=== PATIENT | female | born 1995 ===

== ENCOUNTER 2016-12-21 04:44 | Inpatient (IN) | payer BC, MEDICAID ==
[2016-12-21] MEDS ORDERED: OXYTOCIN IN LR 500 ML IV ONE (05:32)
[2016-12-21 05:37] VITALS: BMI 30.9
[2016-12-21] MEDS ORDERED: PUMP TUBING ONE (05:39)
[2016-12-21] MEDS ORDERED: OXYTOCIN 10 UNITS/ML VIAL ONE ×4 (05:39→17:16)
[2016-12-21] MEDS ORDERED: LIDOCAINE Viscous 2% 15 ML UDCUP ONE (05:39)
[2016-12-21] MEDS ORDERED: MINERAL OIL 25 ML BOT ONE (05:39)
[2016-12-21] MEDS ORDERED: LIDOCAINE 1% (PRES FREE) 30 ML VIAL ONE (05:39)
[2016-12-21] MEDS ORDERED: IV START KIT ONE (05:39)
[2016-12-21 06:34] LABS: HEMATOCRIT 36.9 % (37.0-47.0); HEMOGLOBIN 12.2 gm/l (12.0-16.0); MEAN CELL VOLUME 89.1 fl (81.0-99.0); MEAN CORPUSCULAR HEMOGLOBIN 29.5 pg (27.0-31.0); MEAN CORPUSCULAR HGB CONC 33.1 g/dl (33.0-37.0); RED CELL DISTRIBUTION WIDTH 14.1 % (11.5-14.5)
--- NOTE | 2016-12-21 07:57 | PDOC36 ---
Provider Note Note: cc: Admission H&P HPI: 21 y.o. year old BARRY 12/23/2016, by Ultrasound at 39w5d who SROMd at 0350 this morning. REVIEW OF SYSTEMS GENERAL:~ No fever or headache EYES:~ No double or blurry vision. CARDIOVASCULAR:~ No chest pain. RESPIRATORY:~ No severe shortness of breath or cough. GASTROINTESTINAL:~ No nausea or vomiting or right upper quadrant pain.~ PSYCHIATRIC:~ No anxiety or depression. PROBLEMS Normal OB HISTORY #: 1, Date: 04/17/15, Sex: None, Weight: None, GA: 8w0d, Delivery: Spontaneous , Apgar1: None, Apgar5: None, Living: [place], Comments: None #: 2, Date: Current PSH No past surgical history on file. SOC HX Reports that she has never smoked. She does not have any smokeless tobacco history on file. She reports that she does not drink alcohol or use illicit drugs. ALL No Known Allergies MEDICATIONS ~ Vit-Fe Fumarate-FA ( PO), Take by mouth., Disp: , Rfl:~ PHYSICAL EXAMINATION VITAL SIGNS:~ AFVSS Estimated body mass index is 30.44 Weight as of 12/17/16: (163 lb 4.8 oz). Total weight gain is 8.754 kg (19 lb 4.8 oz) FHT:~ 140s moderate variability positive accels with variable decels, category II [place]:~ contractions every 2-5 min SVE:~ 3/80/-2 GENERAL:~ No distress CARDIOVASCULAR:~ Regular rate and rhythm, no murmur, JVD or pedal edema. RESPIRATORY:~ Clear to auscultation bilaterally, respiratory effort is nonlabored at rest. GASTROINTESTINAL:~ Gravid no fundal tenderness NEUROLOGIC:~ Deep tendon reflexes are 2+ in the knees.~ Cranial nerves II-XII are grossly intact. PSYCHIATRIC:~ Alert and oriented x3, judgement and memory is intact, mood is pleasant. LABS & STUDIES O+ Antibody- Rubella Immune Hep B- HIV- GC/Chlamydia- Trep- Hgb 12.2 GBS Negative ULTRASOUNDS 11 wk - dating US at DI. 19 wk - anatomy survey normal. Grade I anterior placenta without previa. LOUISE subj nl. Female. ASSESSMENT 21 y.o. year old BARRY 12/23/2016, by Ultrasound at 39w5d with SROM at 03: 50 today who is in labor. PLAN Admit for expectant management. :~ Yes Control: Condoms Pediatrics:~ Miguel A Morales MD MPH
[2016-12-21] MEDS: LACTATED RINGERS 1,000 ML IV SCH ×3 (11:03→14:46)
--- NOTE | 2016-12-21 11:28 | PDOC36 ---
Provider Note Note: SUBJECTIVE: Pt was in tub and had a 3 minute decal into the 90s OBJECTIVE: VS: AFVSS FHT: Now in the 160s marked variability, no decels, category II [place]: Contractions every 2-3 minutes SVE: /-2 ASSESSMENT: 21 y.o. year old BARRY 12/23/2016, by Ultrasound at 39w5d with SROM at 03: 50 today who is in labor. PLAN: Decel improved with position changes, fluid bolus and O2. Will continue to monitor closely for further decels with continuous monitoring.
[2016-12-21] MEDS ORDERED: FENTANYL 100 MCG/2 ML VIAL IV PRN (13:02)
[2016-12-21] MEDS ORDERED: ONDANSETRON 4 MG/2ML 2 ML VIAL IV PRN ×4 (13:09→18:25)
[2016-12-21] MEDS ORDERED: EPIDURAL PUMP SET ONE (13:24)
[2016-12-21] MEDS ORDERED: FENTANYL/ROPIVACAINE EPIDURAL 250 ML EP ONE (13:25)
[2016-12-21] MEDS ORDERED: EPIDURAL PROCEDURE TRAY ONE (13:42)
[2016-12-21] MEDS ORDERED: BUPIVACAINE 0.25% (PRES FREE) 30 ML VIAL ONE (13:42)
[2016-12-21] MEDS ORDERED: EPHEDRINE SULFATE 50 MG/ML 1ML VIAL IV PRN (13:45)
[2016-12-21] MEDS ORDERED: LACTATED RINGERS 1,000 ML IV SCH ×3 (13:45→18:00)
[2016-12-21] MEDS ORDERED: NALBUPHINE HCL 20 MG/ML AMP IV PRN (13:45)
[2016-12-21] MEDS ORDERED: LACTATED RINGERS 500 ML IV PRN (13:45)
[2016-12-21] MEDS ORDERED: NALOXONE HCL 0.4 MG/ML VIAL IV PRN (13:45)
[2016-12-21] MEDS ORDERED: DIPHENHYDRAMINE HCL 50 MG/1 ML VIAL IV PRN ×3 (13:45→18:25)
[2016-12-21] MEDS ORDERED: SODIUM CHLORIDE 0.9% 500 ML IV PRN (13:45)
[2016-12-21] MEDS ORDERED: METOCLOPRAMIDE HCL 5 MG/ML 2ML VIAL IV PRN (13:45)
[2016-12-21] MEDS ORDERED: FENTANYL/ROPIVACAINE EPIDURAL 250 ML EP SCH (14:52)
[2016-12-21] MEDS ORDERED: CEFAZOLIN SODIUM 2 GRAM DUPLEX 2 G in Premix (D5W) 50 ml 1 EACH IV PRN (15:41)
[2016-12-21] MEDS ORDERED: CEFAZOLIN SODIUM 2 GRAM DUPLEX 50 ML IV ONE (15:52)
[2016-12-21] MEDS ORDERED: LIDOCAINE 2% (PRES FREE) 5 ML VIAL ONE (15:54)
--- NOTE | 2016-12-21 15:57 | PDOC36 ---
Provider Note Note: cc: Admission H&P HPI: 21 y.o. year old BARRY 12/23/2016, by Ultrasound at 39w5d who SROMd at 0350 this morning. Labored until 3 pm with a couple of long decels lasting 3 minutes each which responded to position changes, oxygen and fluid boluses. She became complete around 3 pm and began pushing with deep repetitive late decels. She is remote from delivery and the baby will not tolerate pushing. REVIEW OF SYSTEMS GENERAL:~ No fever or headache EYES:~ No double or blurry vision. CARDIOVASCULAR:~ No chest pain. RESPIRATORY:~ No severe shortness of breath or cough. GASTROINTESTINAL:~ No nausea or vomiting or right upper quadrant pain.~ PSYCHIATRIC:~ No anxiety or depression. PROBLEMS Normal OB HISTORY #: 1, Date: 04/17/15, Sex: None, Weight: None, GA: 8w0d, Delivery: Spontaneous , Apgar1: None, Apgar5: None, Living: Demise, Comments: None #: 2, Date: Current PSH No past surgical history on file. SOC HX Reports that she has never smoked. She does not have any smokeless tobacco history on file. She reports that she does not drink alcohol or use illicit drugs. ALL No Known Allergies MEDICATIONS ~ Vit-Fe Fumarate-FA ( PO), Take by mouth., Disp: , Rfl:~ PHYSICAL EXAMINATION VITAL SIGNS:~ AFVSS Estimated body mass index is 30.44 Weight as of 12/17/16: (163 lb 4.8 oz). Total weight gain is 8.754 kg (19 lb 4.8 oz) FHT:~ 140s moderate variability positive accels with deep late decels, category II [place]:~ contractions every 2-5 min SVE:~ complete GENERAL:~ No distress CARDIOVASCULAR:~ Regular rate and rhythm, no murmur, JVD or pedal edema. RESPIRATORY:~ Clear to auscultation bilaterally, respiratory effort is nonlabored at rest. GASTROINTESTINAL:~ Gravid no fundal tenderness NEUROLOGIC:~ Deep tendon reflexes are 2+ in the knees.~ Cranial nerves II-XII are grossly intact. PSYCHIATRIC:~ Alert and oriented x3, judgement and memory is intact, mood is pleasant. LABS & STUDIES O+ Antibody- Rubella Immune Hep B- HIV- GC/Chlamydia- Trep- Hgb 12.2 GBS Negative ULTRASOUNDS 11 wk - dating US at DI. 19 wk - anatomy survey normal. Grade I anterior placenta without previa. LOUISE subj nl. Female. ASSESSMENT 21 y.o. year old BARRY 12/23/2016, by Ultrasound at 39w5d who SROMd at 0350 this morning. Labored until 3 pm with a couple of long decels lasting 3 minutes each which responded to position changes, oxygen and fluid boluses. She became complete around 3 pm and began pushing with deep repetitive late decels. She is remote from delivery and the baby will not tolerate pushing. PLAN I reviewed the risks, benefits and alternatives of a section with the patient. She understands the risk of bleeding (she states that she would accept blood products if medically necessary and consent was obtained after counseling), infection (wound infection - possibly leading to wound dehiscence, or pelvic infection) and damage to surrounding organs/tissues (including, but not limited to, bladder, bowel, ureters, uterus, ovaries/tubes, blood vessels and nerves). She understands that any of the above could necessitate further treatment or surgeries. Patient understands and agrees, all questions were answered Will proceed with surgery. :~ Yes Control: Condoms Pediatrics:~ Miguel A Morales MD MPH
[2016-12-21] MEDS ORDERED: MORPHINE SULFATE (DURAMORPH) 1 MG/ML 10ML AMP ONE (16:53)
[2016-12-21] MEDS ORDERED: FENTANYL 100 MCG/2 ML VIAL ONE (16:57)
[2016-12-21] MEDS ORDERED: KETAMINE HCL UD SYRINGE 100 MG/2 ML IV ONE (17:00)
[2016-12-21] MEDS ORDERED: BUPIVACAINE 0.5% (PRES FREE) 30 ML VIAL ONE (17:54)
[2016-12-21] MEDS ORDERED: DIPHENHYDRAMINE HCL 25 MG CAPSULE PO PRN ×2 (17:56→18:25)
[2016-12-21] MEDS ORDERED: LANOLIN 50 APPLIC/7G TUBE TP PRN ×2 (17:56→18:25)
[2016-12-21] MEDS ORDERED: IBUPROFEN 800 MG TABLET PO PRN (17:56)
[2016-12-21] MEDS ORDERED: OXYCODONE HCL 5 MG TABLET PO PRN ×2 (17:56→18:25)
[2016-12-21] MEDS ORDERED: HYDROCODONE/ACETAMINOPHEN 5/325MG TABLET PO PRN (17:56)
[2016-12-21] MEDS ORDERED: KETOROLAC TROMETHAMINE 30 MG/ML 1 ML VIAL IV PRN (17:56)
--- NOTE | 2016-12-21 18:38 | PDOC37 ---
Note:: DATE OF PROCEDURE 12/21/16 PREOPERATIVE DIAGNOSES Term Labor NRFHTs Remote from Delivery POSTOPERATIVE DIAGNOSES Same PROCEDURE Primary Low Transverse Section SURGEON Mazin Morales MD PIGS FEET CLEANER Kim Luong MD ANESTHESIA Epidural COMPLICATIONS None ESTIMATED BLOOD LOSS 750 mL URINE OUTPUT 650 mL IV FLUIDS 1100 mL START TIME 16:15 IMPLANTS None SPECIMENS None BRIEF HISTORY 21 y.o. year old BARRY 12/23/2016, by Ultrasound at 39w5d who SROMd at 0350 this morning. Labored until 3 pm with a couple of long decels lasting 3 minutes each which responded to position changes, oxygen and fluid boluses. She became complete around 3 pm and began pushing with deep repetitive late decels. She is remote from delivery and the baby will not tolerate pushing. FINDINGS Normal ovaries, fallopian tubes and uterus OPERATIVE NOTE Verbal and written informed consent was obtained. The patient was taken to the operating room where spinal anesthesia was found to be adequate.~ She was then placed in the dorsal supine position with a leftward tilt and prepped and draped in a sterile fashion.~ Surgical timeout was performed confirming the patient's name, date of , surgical procedure to be performed and any concerns from team members.~ A Pfannenstiel skin incision was then made with the scalpel and carried through to the underlying layer of fascia.~ The fascia was incised in the midline and the incision extended laterally with the Garcia scissors.~ The superior aspect of the fascial incision was then grasped with Geoff clamps, elevated and the underlying rectus muscles dissected off bluntly and with Garcia scissors.~ Attention was then turned to the inferior aspect of this incision, which in similar fashion was grasped, tented up with Geoff clamps, and the rectus muscle dissected of bluntly with Garcia scissors.~ The rectus muscles were then bluntly in the midline, and the peritoneum identified, tented up, and entered sharply with Metzenbaum scissors. ~ The peritoneal incision was then extended superiorly and inferiorly with good visualization of the bladder.~ An Deion retractor was inserted.~ The visceroperitoneum was grasped with smooth pickups, entered with Metzenbaum scissors, and extended laterally. A bladder flap was created by gentle blunt dissection and placed behind the bladder blade. The lower uterine segment was then incised in a transverse fashion with the scalpel.~ The uterine incision was then bluntly extended revealing the amniotic sac which was ruptured with clear fluid.~ The 's head was grasped, flexed and elevated to level of the hysterotomy and the head was then delivered atraumatically.~ The mouth and nose were bulb suctioned and the cord clamped and cut.~ The infant was handed off to the waiting resuscitation team.~ Cord gases were not required. The placenta was then removed via cord traction and fundal massage; the uterus was not exteriorized, it was cleared of all clots and debris.~ The uterine incision was repaired with 0 Vicryl in a running, locked fashion.~ The second layer was imbricated with 0 Vicryl in a running fashion.~~~ Hemostasis was checked and areas of bleeding were repaired with the Bovie. The gutters were cleared of all clots.~ Hemostasis was carefully checked and found to be satisfactory.~ The Deion was removed The fascia was reapproximated with 0 Vicryl in a running fashion.~ Bleeding points were Bovie coagulated. The skin was closed subcutaneously using 4-0 monocryl with a subcuticular stitch.~ A sterile dressing was placed. The patient tolerated the procedure well.~ Sponge, lap and needle counts were correct times two. The patient was taken to the recovery room in stable condition.
[2016-12-21] MEDS: KETOROLAC TROMETHAMINE 30 MG/ML 1 ML VIAL IV PRN (18:41)
[2016-12-21] MEDS ORDERED: DOCUSATE SODIUM 100 MG CAPSULE PO SCH (21:00)
[2016-12-22] MEDS: KETOROLAC TROMETHAMINE 30 MG/ML 1 ML VIAL IV PRN ×2 (00:57→08:13)
[2016-12-22 06:54] LABS: HEMATOCRIT 32.1 % (37.0-47.0); HEMOGLOBIN 10.5 gm/l (12.0-16.0)
[2016-12-22] MEDS: DOCUSATE SODIUM 100 MG CAPSULE PO SCH ×3 (08:14→20:11)
[2016-12-22] MEDS: PRENATAL VIT/FE FUMARATE/FA 1 TABLET PO SCH (08:14)
[2016-12-22] MEDS ORDERED: PRENATAL VIT/FE FUMARATE/FA 1 TABLET PO SCH (09:00)
[2016-12-22] MEDS: IBUPROFEN 800 MG TABLET PO PRN ×2 (13:58→20:11)
[2016-12-22] MEDS: HYDROCODONE/ACETAMINOPHEN 5/325MG TABLET PO PRN ×2 (13:58→20:11)
--- NOTE | 2016-12-22 19:05 | PDOC44 ---
- Subjective Day: 1 (POD#1 s/p LTCS for NRFHT) Doing well. Has been OOB to chair, but only once bc had visitors all day. Still w mckeon. Pain controlled. Min VB. No nausea or vomiting. Reports Flatus, Reports Pain Tolerable, Reports , Reports Tolerating Regular Diet, Denies Nausea, Denies Vomiting - Objective Temp Pulse Resp BP Pulse Ox 98.1 F 71 20 121/80 97 12/22/16 13:59 12/22/16 13:59 12/22/16 13:59 12/22/16 13:59 12/22/16 13:59 Lab Results 12/22/16 06:05 Hgb 10.5 L Hct 32.1 L Current Medications Generic Name Dose Route Start Last Admin Trade Name Freq PRN Reason Stop Dose Admin Acetaminophen/Hydrocodone Bitart 1 - 2 tab 12/21/16 18:25 12/22/16 13:58 [place] 5/325 PO 1 tab Q4H PRN Administration Pain (Moderate) Diphenhydramine HCl 25 - 50 mg 12/21/16 18:25 Benadryl PO Q6H PRN Itching (Mild/Moderate) Diphenhydramine HCl 25 - 50 mg 12/21/16 18:25 Benadryl IV Q6H PRN Itching (Severe) Docusate Sodium 100 mg 12/21/16 21:00 12/22/16 11:28 Colace PO Not Given BID MIRELLA Emollient Ointment 1 applic 12/21/16 18:25 Val-J-Zurldp TP PRN PRN sore nipples Lactated Ringer's 1,000 mls @ 125 mls/hr 12/21/16 18:30 Lactated Ringers IV .Q8H MIRELLA Ibuprofen 800 mg 12/21/16 18:25 12/22/16 13:58 Motrin PO 800 mg Q6H PRN Administration Pain Ketorolac Tromethamine 30 mg 12/21/16 18:25 12/22/16 08:13 Toradol IV 30 mg Q6H PRN Administration Pain (Mild/Moderate) Multivi/Iron Carb/Fe Sulf/FA/Prenat 1 tab 12/22/16 09:00 12/22/16 08:14 Plus PO 1 tab DAILY MIRELLA Administration Ondansetron HCl 4 mg 12/21/16 18:25 Zofran IV Q6H PRN Nausea/Vomiting Oxycodone HCl 5 - 10 mg 12/21/16 18:25 Roxicodone PO Q3H PRN Pain (Severe) Sodium Chloride 10 ml 12/21/16 18:25 12/22/16 17:46 Normal Saline 10ml Flush IV 10 ml PRN PRN Administration IV Flush Sodium Chloride 10 ml 12/22/16 01:00 12/22/16 08:14 Normal Saline 10ml Flush IV 10 ml Q8HR MIRELLA Administration - Physical Exam General: Afebrile, No Acute Distress Psych/Mental Status: Mood/Affect Appropriate, Bonding Well Neurological: Grossly Intact, Alert, Normal Speech HEENT: Atraumatic, Mucous membr. moist/pink Lungs: Clear to Auscultation Bilaterally Cardiovascular: Regular Rate and Rhythm Breast: Soft Fundus: Firm, Midline, Below Umbilicus Abdomen: Normal Bowel Sounds Extremities: Full ROM Skin: Normal Color, Warm, Dry, Intact, No Rash Wound ELECTRONICS ASSEMBLER: Dressing Clean/Dry/Intact - Problems:Assessment/Plan (1) delivery, delivered, current hospitalization Status: AcuteAssessment/Plan: Doing well s/p p LTCS for NRFHT, POD#1 Encourage ambulation Mckeon out later today Routine post csxn care Support BF Anticip DC home in 2 days Disposition: Stable
[2016-12-23] MEDS: LACTATED RINGERS 1,000 ML IV SCH ×6 (00:33→19:59)
[2016-12-23] MEDS: IBUPROFEN 800 MG TABLET PO PRN ×3 (06:04→21:02)
[2016-12-23] MEDS: HYDROCODONE/ACETAMINOPHEN 5/325MG TABLET PO PRN ×5 (06:04→23:15)
[2016-12-23] MEDS: DOCUSATE SODIUM 100 MG CAPSULE PO SCH ×2 (11:45→21:02)
[2016-12-23] MEDS: PRENATAL VIT/FE FUMARATE/FA 1 TABLET PO SCH (11:45)
--- NOTE | 2016-12-23 11:46 | PDOC44 ---
- Subjective Day: 2 (post-operative day 2) Doing well. Voiding on her own. Denies dizziness. Passing flatus. Tolerating PO. Pain controlled with medications. Lochia minimal. Reports Flatus, Reports Pain Tolerable, Reports , Reports Lochia Light, Reports Tolerating Regular Diet, Denies Nausea, Denies Vomiting - Objective Temp Pulse Resp BP Pulse Ox 97.3 F 74 16 117/80 97 12/23/16 08:02 12/23/16 08:02 12/23/16 08:02 12/23/16 08:02 12/22/16 13:59 Current Medications Generic Name Dose Route Start Last Admin Trade Name Freq PRN Reason Stop Dose Admin Acetaminophen/Hydrocodone Bitart 1 - 2 tab 12/21/16 18:25 12/23/16 06:04 [place] 5/325 PO 1 tab Q4H PRN Administration Pain (Moderate) Diphenhydramine HCl 25 - 50 mg 12/21/16 18:25 Benadryl PO Q6H PRN Itching (Mild/Moderate) Diphenhydramine HCl 25 - 50 mg 12/21/16 18:25 Benadryl IV Q6H PRN Itching (Severe) Docusate Sodium 100 mg 12/21/16 21:00 12/22/16 20:11 Colace PO 100 mg BID MIRELLA Administration Emollient Ointment 1 applic 12/21/16 18:25 [id number]-P-[id number] TP PRN PRN sore nipples Lactated Ringer's 1,000 mls @ 125 mls/hr 12/21/16 18:30 12/23/16 03:45 Lactated Ringers IV Not Given .Q8H MIRELLA Ibuprofen 800 mg 12/21/16 18:25 12/23/16 06:04 Motrin PO 800 mg Q6H PRN Administration Pain Ketorolac Tromethamine 30 mg 12/21/16 18:25 12/22/16 08:13 Toradol IV 30 mg Q6H PRN Administration Pain (Mild/Moderate) Multivi/Iron Carb/Fe Sulf/FA/Prenat 1 tab 12/22/16 09:00 12/22/16 08:14 Plus PO 1 tab DAILY MIRELLA Administration Ondansetron HCl 4 mg 12/21/16 18:25 Zofran IV Q6H PRN Nausea/Vomiting Oxycodone HCl 5 - 10 mg 12/21/16 18:25 Roxicodone PO Q3H PRN Pain (Severe) Sodium Chloride 10 ml 12/21/16 18:25 12/23/16 06:04 Normal Saline 10ml Flush IV 10 ml PRN PRN Administration IV Flush Sodium Chloride 10 ml 12/22/16 01:00 12/23/16 04:15 Normal Saline 10ml Flush IV Not Given Q8HR MIRELLA - Physical Exam General: Afebrile, No Acute Distress Psych/Mental Status: Mood/Affect Appropriate, Bonding Well Neurological: Alert, Normal Speech Lungs: Clear to Auscultation Bilaterally, Normal Air Movement Cardiovascular: Regular Rate and Rhythm, Normal S1, Normal S2 Breast: Nipples Intact Fundus: Firm, Midline Extremities: Full ROM, No Edema, No Tenderness Skin: Normal Color, Warm, Dry, Intact, No Rash Wound CHUTE LOADER: Well Approximated, No Drainage, No Erythema - Problems:Assessment/Plan (1) delivery, delivered, current hospitalization Status: AcuteAssessment/Plan: Doing well s/p p LTCS for NRFHT, POD#2 Encourage ambulation Routine post csxn care Support BF Anticip DC home tomorrow Disposition: Stable, Anticipate DC Home Tomorrow
[2016-12-24] MEDS: IBUPROFEN 800 MG TABLET PO PRN ×2 (03:30→10:31)
[2016-12-24] MEDS: HYDROCODONE/ACETAMINOPHEN 5/325MG TABLET PO PRN ×3 (03:30→10:31)
[2016-12-24] MEDS: DOCUSATE SODIUM 100 MG CAPSULE PO SCH (07:58)
[2016-12-24] MEDS: PRENATAL VIT/FE FUMARATE/FA 1 TABLET PO SCH (07:58)
--- NOTE | 2016-12-24 09:08 | PDOC39B ---
Hospital Course: ADMIT DATE: 12/21/16 DISCHARGE DATE: 12/24/16 ADMISSION DIAGNOSES: Labor PROCEDURES: Primary LTCS HISTORY OF PRESENT ILLNESS: 21 year old G2 T0 L0 at 39 weeks 5 days presenting with labor, she went on to have a primary C/S for NRFHT. HOSPITAL COURSE: The patient is doing well. Breast feeding well. Her pain is controlled. Minimal lochia. By day of discharge the patient is ambulating, eating, voiding, and passing flatus without difficulty. Pain is controlled and lochia is appropriate. She is [] - Physical Exam Vital Signs: Temp Pulse Resp BP Pulse Ox 97.8 F 72 14 119/74 97 12/24/16 08:11 12/24/16 08:11 12/24/16 08:11 12/24/16 08:11 12/22/16 13:59 General: Afebrile Psych/Mental Status: Mood/Affect Appropriate Neurological: Alert HEENT: Atraumatic Lungs: Clear to Auscultation Bilaterally Cardiovascular: Regular Rate and Rhythm Breast: Soft Fundus: Firm, At Umbilicus Abdomen: Normal Bowel Sounds Lochia: Light Rectal Exam: Deferred Extremities: Full ROM, Other (trace edema, nt) Skin: Normal Color Wound: Well Approximated - Discharge Diagnosis (1) delivery, delivered, current hospitalization Status: AcuteAssessment/Plan: Doing well s/p p LTCS for NRFHT, POD#3 Encourage ambulation Routine post csxn care Support BF Home today
[2016-12-24 10:40] VITALS: BP 126/72
[2016-12-24] MEDS ORDERED: OXYCODONE/ACETAMINOPHEN 5/325 MG TABLET PO ONE (12:53)
== END 2016-12-24 13:55 | disposition home or self-care (01) | DRG 766 ==
LOC: FBC 04:44 → FBCOUT 04:44 → FBC 05:33 → FBCOUT 05:33 → FBC 16:38
PROVIDERS: ADMIT Family Medicine; ATTEND Family Medicine
PROC: 10D00Z1 Extraction of Products of Conception, Low, Open Approach (ICD-10-PCS; principal; 2016-12-21)
DX: O76 Abnormality in fetal heart rate and rhythm complicating labor and delivery (principal); Z3A.39 39 weeks gestation of pregnancy; Z37.0 Single live birth

== ENCOUNTER 2016-12-25 15:09 | Outpatient (CLI) | payer BC, MEDICAID | END 2016-12-25 15:58 | LOC: BABIESSH 15:09 | PROVIDERS: ATTEND Family Medicine | DX: Z39.1 Encounter for care and examination of lactating mother (principal) ==

== ENCOUNTER 2016-12-27 15:03 | Outpatient (CLI) | payer BC, MEDICAID | END 2016-12-27 15:04 | disposition home or self-care (01) | LOC: BABIESSH 15:03 | PROVIDERS: ATTEND Family Medicine | DX: Z39.1 Encounter for care and examination of lactating mother (principal) ==

== ENCOUNTER 2016-12-31 16:05 | Outpatient (CLI) | payer BC, MEDICAID | END 2016-12-31 16:06 | disposition home or self-care (01) | LOC: BABIESSH 16:05 | PROVIDERS: ATTEND Family Medicine | DX: Z39.1 Encounter for care and examination of lactating mother (principal) ==